=== PATIENT | male | born 1960 | race Hispanic/Latino ===

== ENCOUNTER 2022-07-29 03:52 | Emergency (ER) | payer OTHER ==
--- OUTSIDE RECORDS SUMMARY | 2022-07-29 03:58 | XMS REPORT | Continuity of Care Document ---
:1960 Author Organization [facility] t Address [address] [place] [address] [address] [place] [address] Care Team Providers Name Role Phone Glen Saravia MD Primary Care Physician JOSH LU Attending Clinician Unavailable Josh Lu Attending Clinician Yuval Vasquez Attending Clinician YUVAL VASQUEZ Attending Clinician Unavailable Kendy Fernández Attending Clinician Rehana Lackey Attending Clinician Problems Condition Condition Condition Status Onset Resolution Last Treating Co mments Source Name Details Category Date Date Treatment Clinician Date FATIGUE/FE FATIGUE/F Diagnosis Active 2020-032021-02-22 Memoria FRANCA/ABD EVER/ABD 04-19 09:10:00 l PAIN/HIGH PAIN/HIGH 00:00: Herm michael BP BP Active 00 02/16/2021 [facility] [place] ANXIETY ANXIETY Diagnosis Active 2019-032020-02-24 Memoria Active 2- 02:19:00 l 02/24/2020 00:00: Christoph Beaulieu 00 [place] SIDE PAIN SIDE PAIN Diagnosis Active 2019-032020-02-04 Memoria Active 04-05 15:23:00 l 02/04/2020 00:00: Christoph [facility] 00 [place] ABD PAIN/ ABD PAIN/ Diagnosis Active 2015-07-25 Memoria FEVER FEVER - 00:47:00 l Active 00:00: [place] 07/24/2015 00 [facility] [place] Hypertensi Problem Active 2021-02-21 Tiburcio paulson ve Hypertensi 09:23:43 l disorder, ve [place] systemic disorder, arterial systemic (disorder) arterial (disorder) Active Problem 02/21/2021 [facility] History of Past Illness Condition Condition Condition Status Onset Resolution Last Treating Co mments Source Name Details Category Date Date Treatment Clinician Date Fever, Fever, Problem 2020-032021-02-21 2021-02-21 Memoria unspecifie unspecifie 04-20 09:23:43 09:23:43 l d d 04:57: [place] 02/17/2021 00 02/21/2021 [facility] Essential Essential Problem 2020-032021-02-21 2021-02-21 Memoria (primary) (primary) 04-20 09:23:43 09:23:43 l hypertensi hypertensi 04:57: He harsha on on 00 02/17/2021 02/21/2021 [facility] Hematuria, Hematuria Problem 2020-032021-02-21 2021-02-21 Memoria unspecifie , 04-20 09:23:43 09:23:43 l d unspecifie 04:57: Christoph n d 00 02/17/2021 [facility] Anxiety Anxiety Problem 2019-032020-02-26 2020-02-26 Memoria disorder, disorder, 04-26 22:07:05 22:07:05 l unspecifie unspecifie 18:00: He rmann d d 00 02/24/2020 0 [facility] Unspecifie Unspecifi Problem 2019-032020-02-06 2020-02-06 Memoria d ed 04-05 23:14:11 23:14:11 l abdominal abdominal 18:00: Herm michael pain pain 00 02/04/2020 0 [facility] Discharge Discharge Problem 2015-07-28 2015-07-28 Memoria Diagnosis: Diagnosis: 07-24 00:21:12 00:21:12 l Generalize Generalize 05:00: He rmann d d 00 abdominal abdominal cramps cramps 07/25/2015 07/28/2015 [facility] Discharge Discharge Problem 2016-0 2015-07-28 2015-07-28 Memoria Diagnosis: Diagnosis: -15 00:21:12 00:21:12 l Viral Viral 05:00: [place] syndrome syndrome 00 07/25/2015 07/28/2015 [facility] Allergies, Adverse Reactions, Alerts Allergy Allergy Status Severity Reaction(s) Onset Inactive Treating Comm ents Source Name Type Date Date Clinician No Known No Known Active Memori a Medicati Medicati l on on [place] Allergie Allergie s s Social History Social Habit Start Date Stop Date Quantity Comments Source Sexual orientation [facility] Gender identity [facility] History of Social 2018-10-31 2018-10-[address] function 00:00:00 00:00:00 Hospital Tobacco use and 2018-01-31 2018-01-31 Smokeless [facility] exposure 00:00:00 00:00:00 tobacco non-user Hospital Alcohol intake 2018-01-31 2018-01-31 Current [facility] 00:00:00 00:00:00 non-drinker of Hospital alcohol (finding) Sex Assigned At [birth year] [facility] 00:00:00 00:00:00 Hospital Smoking Status Start Date Stop Date Source Social History [facility] Medications Ordered Filled Start Stop Current Ordering Indication Dosage Frequency Signature Comments Components Source Medication Medication Date Date Medication? Clinician (SIG) Name Name Acetaminoph 2020-03 No 1 tab, Adan livan en 325 MG / 04-20 Route: PO, l Hydrocodone 05:19: Drug Form: [place] Bitartrate 00 TAB, 5 MG Oral Dosing Tablet Weight 79.545, kg, ONCE, STAT, Start date: 02/16/21 23:19:00 SEAM STAYER, Stop date: 02/16/21 23:19:00 SEAM STAYER Ibuprofen 2020-03 No 600 mg, Memor ia 04-20 Route: PO, l 05:19: ONCE, [place] 00 Dosing Weight 79.545, kg, Priority: STAT, Start date: 02/16/21 23:19:00 SEAM STAYER, Stop date: 02/16/21 23:19:00 SEAM STAYER Saline 2020-03 No Notes: Memoria Flush 0.9% 04-20 Same as: l 02:58: BD [place] Posiflush Sterile Sodium 2020-03 No 2,343 mL, Memori a Chloride 04-20.5 l 0.9% 02:58: ml/hr, [place] (Bolus) IV 00 Infuse Over: 1.2 hr, Route: IV, 2,343, Drug form: INJ, ONCE, Priority: STAT, Dosing Weight 78.1 kg, Start date: 02/16/21 20:58:00 SEAM STAYER, Stop date: 02/16/21 20:58:00 SEAM STAYER, 0 Acetaminoph 2020-03 No Notes: Do M emoria en 04-20 not exceed l 02:57: 4 gm/day. (Same as: Tylenol) Ativan 2019-03 No 1 mg, Memoria 2- Route: PO, l 09:29: Drug form: [place] 00 TAB, ONCE, Dosing Weight 78.1, kg, Priority: STAT, Start date: 02/24/20 3:29:00 SEAM STAYER, Stop date: 02/24/20 3:29:00 SEAM STAYER clonazePAM 2019-03 Yes 0.5 mg = 1 M emoria 0.5 mg oral 2-15 tab, PO, l tablet 09:06: Bedtime, [place] 00 PRN Anxiety, # 10 tab, 0 Refill(s) Ketorolac 2019-03 Yes 10 mg = 1 Mem oria Tromethamin 1-25 tab, PO, l e 10 MG 21:33: Q6H, X 5 Christoph n Oral Tablet 00 day, # 20 tab, 0 Refill(s) SUMAtriptan 2017-03 Yes 50mg Take 50 mg Methodi (IMITREX) -[address] 50 MG 10:27: once [facility] tablet 12 needed for l migraine. May repeat in 2 hours if unresolved . Do not exceed 200 mg in 24 hours. Ondansetron Yes 4 mg = 1 Me moria 4 MG 5-15 tab, PO, l Disintegrat 05:25: BID, PRN He rmann ing Tablet 00 Nausea and [Zofran] Vomiting, Dissolve tab under tongue, X 5 day, # 10 tab, 0 Refill(s) Dicyclomine Yes 20 mg = 1 M emoria Hydrochlori 5-15 tab, PO, l de 20 MG 05:24: BID, PRN [place] nn Oral Tablet 00 Cramps, # [Bentyl] 14 tab, 0 Refill(s) Metronidazo Yes 500 mg = 1 Memoria le 500 MG 5-15 tab, PO, l Oral Tablet 05:23: Q12H, X 5 H ermann [Flagyl] 00 day, # 10 tab, 0 Refill(s) Ciprofloxac Yes 500 mg = 1 Memoria in 500 MG 5-15 tab, PO, l Oral Tablet 05:23: Q12H, X 7 H ermann [Cipro] day, # 14 tab, 0 Refill(s) ketOROLAC No 4 days Memor ia 30 mg/mL 5-15 l injectable 04:32: MEDICATION H ermann solution 00 WASTE Product Size: 30 mg Product Wasted: ___ mg Reglan No Notes: Memoria 5-15 (Same as: l 04:32: Reglan) [place] 00 Sodium No 1,000 mL, Memori a Chloride -15 1,000 l 0.154 04:32: ml/hr, [place] MEQ/ML 00 Infuse Injectable Over: 1 Solution hr, Route: IV, 1,000, Drug form: INJ, ONCE, Priority: STAT, Dosing Weight 75 kg, Start date: 07/24/15 23:32:00 CDT, Duration: 1 doses or times, Stop date: 07/24/15 23:32:00 CDT Tylenol No Notes: Do Memor ia 5-15 not exceed l 04:06: 4 gm/day. [place] 00 (Same as: Tylenol) Vital Signs Vital Name Observation Time Observation Value Comments Source Systolic (mm Hg) 2021-02-17 05:13:00 Adan rial [place] Diastolic (mm Hg) 2021-02-17 05:13:00 Mem orial [place] Temperature Oral (F) 2021-02-17 05:13:00 99.0 F [facility] [place] Respitory Rate 2021-02-17 05:13:00 Memori al [place] Respitory Rate 2021-02-17 04:35:00 Memori al [place] Systolic (mm Hg) 2021-02-17 03:55:00 Adan rial [place] Diastolic (mm Hg) 2021-02-17 03:55:00 Mem orial [place] Respitory Rate 2021-02-17 03:55:00 Memori al [place] Height 2021-02-17 03:39:00 167.64 cm [facility] [place] BMI Calculated 2021-02-17 03:39:00 Memori al [place] Weight 2021-02-17 03:39:00 [facility] [place] Systolic (mm Hg) 2021-02-17 02:52:00 Adan rial [place] Diastolic (mm Hg) 2021-02-17 02:52:00 Mem orial [place] Heart Rate 2021-02-17 02:52:00 [facility] [place] Temperature Oral (F) 2021-02-17 02:52:00 100.4 F [facility] [place] Systolic (mm Hg) 2020-02-24 09:38:00 Adan rial [place] Diastolic (mm Hg) 2020-02-24 09:38:00 Mem orial [place] Respitory Rate 2020-02-24 09:38:00 Memori al [place] Heart Rate 2020-02-24 09:38:00 [facility] [place] Temperature Oral (F) 2020-02-24 09:38:00 98 F [facility] [place] Height 2020-02-24 07:00:00 167.64 cm [facility] [place] BMI Calculated 2020-02-24 07:00:00 Memori al [place] Weight 2020-02-24 07:00:00 [facility] [place] Systolic (mm Hg) 2020-02-24 07:00:00 Adan rial [place] Diastolic (mm Hg) 2020-02-24 07:00:00 Mem orial [place] Heart Rate 2020-02-24 07:00:00 [facility] [place] Respitory Rate 2020-02-24 07:00:00 Memori al [place] Temperature Oral (F) 2020-02-24 07:00:00 98.0 F [facility] [place] Systolic (mm Hg) 2020-02-04 22:45:00 Adan rial [place] Diastolic (mm Hg) 2020-02-04 22:45:00 Mem orial [place] Respitory Rate 2020-02-04 22:45:00 Memori al [place] Height 2020-02-04 19:33:00 167.64 cm [facility] [place] BMI Calculated 2020-02-04 19:33:00 Memori al [place] Weight 2020-02-04 19:33:00 [facility] [place] Systolic (mm Hg) 2020-02-04 19:33:00 Adan rial [place] Diastolic (mm Hg) 2020-02-04 19:33:00 Mem orial [place] Heart Rate 2020-02-04 19:33:00 [facility] [place] Respitory Rate 2020-02-04 19:33:00 Memori al [place] Temperature Oral (F) 2020-02-04 19:33:00 98.3 F [facility] [place] Systolic (mm Hg) 2015-07-25 05:29:00 Adan rial [place] Diastolic (mm Hg) 2015-07-25 05:29:00 Mem orial [place] Respitory Rate 2015-07-25 05:29:00 Memori al [place] Heart Rate 2015-07-25 05:29:00 [facility] [place] Temperature Oral (F) 2015-07-25 05:29:00 98.6 F [facility] [place] Systolic (mm Hg) 2015-07-25 03:13:00 Adan rial [place] Diastolic (mm Hg) 2015-07-25 03:13:00 Mem orial [place] BMI Calculated 2015-07-25 03:13:00 Memori al [place] Weight 2015-07-25 03:13:00 [facility] [place] Heart Rate 2015-07-25 03:13:00 [facility] [place] Respitory Rate 2015-07-25 03:13:00 Memori al [place] Temperature Oral (F) 2015-07-25 03:13:00 100.6 F [facility] [place] Height 2015-07-25 03:13:00 167.64 cm [facility] [place] Procedures Procedure Date / Time Performed Performing Clinician [facility] e Colonoscopy 2020-02-23 06:00:00 [facility] Plan of Care Planned Activity Planned Date Details Comments Source Future Scheduled 2022-06-11 COVID-19 VACCINE (#1) [facility] Test 02:33:58 [code = COVID-19 VACCINE (#1)] Future Scheduled 2022-06-11 COLONOSCOPY SCREENING [facility] Test 02:33:58 [code = COLONOSCOPY SCREENING] Future Scheduled 2022-06-11 SHINGLES [facility]IN[facility] 02:33:58 of 2) [code = SHINGLES VACCINES (1 of 2)] Future Scheduled 2022-06-11 INFLUENZA VACCINE [facility] Test 02:33:58 [code = INFLUENZA VACCINE] Encounters Start End Encounter Admission Attending Care Care Encounter Source Date/Time Date/Time Type Type Clinicians Facility Department ID 2021-02-17 2021-02-17 Emergency nullFlavo [facility] [id number] Memoria 02:47:00 05:26:00 r [place] 03 l [facility] 2021-02-16 2021-02-16 Emergency E NAN, BL [facility]BL [id number] [facility]BL 20:47:00 23:26:00 JOSH 2021-02-16 2021-02-16 Outpatient DAVID LuPL [facility] [id number] 20:47:00 23:26:00 Josh Marisol Marcos 2021-02-16 2021-02-16 Outpatient DAVID LuPL [facility] [id number] 20:47:00 23:26:00 Josh Marisol Marcos 2020-02-24 2020-02-24 Emergency nullFlavo [facility] [id number] Memoria 06:51:52 09:40:00 r [place] 02 l [facility] 2020-02-24 2020-02-24 Outpatient DAVID VasquezPL [facility] [id number] 00:51:52 03:40:00 Abdiwsheila 02 [facility] 2020-02-24 2020-02-24 Emergency E PARISH VASQUEZ [facility]BL [id number] MHBL 00:51:00 03:40:00 ABDIWAHAB 2020-02-04 2020-02-04 Emergency nullFlavo [facility] [id number] Memoria 19:29:37 23:04:00 r [place] 01 [facility] 2020-02-04 2020-02-04 Outpatient Christina, PL [facility]PL [id number] 13:29:37 17:04:00 Abdiwahab 01 [facility] 2019-10-30 2019-10-31 Outpt Diag nullFlavo [facility] [id number] Memoria 20:08:00 04:59:00 Services r Outpatient 00 l [facility] 2019-10-30 2019-10-30 Outpatient PAULA Fernández MHOIP [id number] 15:08:00 23:59:00 Kendy 00 [place] 2015-07-25 2015-07-25 EC heenaFlavo [facility] [id number] Memoria 03:09:00 05:51:00 Emergency r [place] 00 l Center [facility] 2015-07-24 2015-07-25 Outpatient Fadkriss, MHPL [facility] [id number] 22:09:00 00:51:00 Rehana 00 [facility] Results Test Description Test Time Test Comments Results Result Comments Source URINE AND STOOL 2021-02-17 03:45:00 Test Item Value Reference Range Interpretation Comme nts UA Color (test code = UA Color) Yellow *NA*(02/16/21 9:45 PM) [facility] AND [id number] 03:45:00 Test Item Value Reference Range Interpretation Comments UA Turbidity (test code = Clear (02/16/21 9:45 UA Turbidity) PM) [facility] AND [id number] 03:45:00 Test Item Value Reference Range Interpretation Comments UA Spec Grav (test code = UA Spec 1.021 1 Grav) [facility] AND [id number] 03:45:00 Test Item Value Reference Range Interpretation Comments UA pH (test code = UA pH) 5.0 1 5.0-8.0 [facility] AND [id number] 03:45:00 Test Item Value Reference Range Interpretation Comments UA Protein (test code = UA Negative mg/dL Protein) [facility] AND [id number] 03:45:00 Test Item Value Reference Range Interpretation Comments UA Glucose (test code = UA Negative mg/dL Glucose) [facility] AND [id number] 03:45:00 Test Item Value Reference Range Interpretation Comments UA Ketones (test code = UA Negative mg/dL Ketones) [facility] AND [id number] 03:45:00 Test Item Value Reference Range Interpretation Comments UA Bili (test code = Negative *NA*(02/16/21 UA Bili) 9:45 PM) [facility] AND [id number] 03:45:00 Test Item Value Reference Range Interpretation Comments UA Blood (test code = Moderate *ABN*(02/16/21 UA Blood) 9:45 PM) [facility] AND [id number] 03:45:00 Test Item Value Reference Range Interpretation Comments UA Nitrite (test code Negative (02/16/21 9:45 = UA Nitrite) PM) [facility] AND [id number] 03:45:00 Test Item Value Reference Range Interpretation Comments UA Leuk Est (test Negative (02/16/21 9:45 code = UA Leuk Est) PM) [facility] AND [id number] 03:45:00 Test Item Value Reference Range Interpretation Comments UA Sq Epi (test code = UA Sq Occasional /LPF Epi) [facility] AND [id number] 03:45:00 Test Item Value Reference Range Interpretation Comments UA WBC (test code = 1 See_Comment [Automa moira message] The UA WBC) system which ge nerated this result transmit moira reference range : <=5. The reference range was not used to interpr et this result as rodney l/abnormal. [facility] AND [id number] 03:45:00 Test Item Value Reference Range Interpretation Comments UA RBC (test code = 8 See_Comment [Automa moira message] The UA RBC) system which ge nerated this result transmit moira reference range : <=2. The reference range was not used to interpr et this result as rodney l/abnormal. [facility] AND [id number] 03:45:00 Test Item Value Reference Range Interpretation Comments UA Mucus (test code = UA Mucus) Few /LPF [facility] AND [id number] 03:45:00 Test Item Value Reference Range Interpretation Comments UA Urobilinogen (test code = UA <=1.0 mg/dL 0.1-1.0 Urobilinogen) [id number] 03:32:00 Test Item Value Reference Range Interpretation Comments Coronavirus (COVID-19) Not Detected (02/16/21 GREG (test code = 9:32 PM) Coronavirus (COVID-19) GREG) [id number] 03:31:00 Test Item Value Reference Range Interpretation Comments Plt Morph (test code = Normal (02/16/21 9:31 Plt Morph) PM) [id number] 03:31:00 Test Item Value Reference Range Interpretation Comments Segs (test code = Segs) 92.9 45.0-75.0 [facility] [id number] 03:31:00 Test Item Value Reference Range Interpretation Comments Lymphocytes (test code = Lymphocytes) 3.0 20.0-40.0 [facility] [id number] 03:31:00 Test Item Value Reference Range Interpretation Comments Monocytes (test code = Monocytes) 3.7 2.0-12.0 [facility] [id number] 03:31:00 Test Item Value Reference Range Interpretation Comments Eosinophils (test code = 0.2 See_Comment [A utomated message] The Eosinophils) system which ge nerated this result tra nsmitted reference range : <=4.0. The reference r reva was not used to int erpret this result as normal/abnormal . [facility] [id number] 03:31:00 Test Item Value Reference Range Interpretation Comments Basophils (test code = 0.2 See_Comment [Aut omated message] The Basophils) system which ge nerated this result tra nsmitted reference range : <=1.0. The reference r reva was not used to int erpret this result as normal/abnormal . [facility] [id number] 03:31:00 Test Item Value Reference Range Interpretation Comments Neutrophils # (test code = Neutrophils 10.4 1.5-8.1 #) [facility] [id number] 03:31:00 Test Item Value Reference Range Interpretation Comments Lymphocytes # (test code = Lymphocytes 0.3 1.0-5.5 #) [facility] [id number] 03:31:00 Test Item Value Reference Range Interpretation Comments Monocytes # (test code 0.4 See_Comment [Aut omated message] The = Monocytes #) system which generated this result tra nsmitted reference range : <=0.8. The reference r reva was not used to int erpret this result as normal/abnormal . [facility]Act[facility] [id number] 03:31:00 Test Item Value Reference Range Interpretation Comments Total CK (test code = Total CK) 72 12-191 [facility] [id number] 03:31:00 Test Item Value Reference Range Interpretation Comments Troponin-I (test code no gt See_Comment [Auto mated message] The = Troponin-I) system which g enerated this result transmit moira reference range : <=0.40. The reference r reva was not used to interpr et this result as rodney l/abnormal. [facility] [id number] 03:31:00 Test Item Value Reference Range Interpretation Comments Procalcitonin Lvl (test 0.16 See_Comment [Au tomated message] code = Procalcitonin Lvl) Th e system which generated this result transmitted ref erence range: <=0.10. The reference range was not used to interpr et this result as normal/abnormal . [facility] [id number] 03:31:00 Test Item Value Reference Range Interpretation Comments Glucose Lvl (test code = Glucose Lvl) 113 70-99 [facility] [id number] 03:31:00 Test Item Value Reference Range Interpretation Comments BUN (test code = BUN) 14 7-22 [facility] [id number] 03:31:00 Test Item Value Reference Range Interpretation Comments Creatinine Lvl (test code = Creatinine 1.12 0.50-1.40 Lvl) [facility] [id number] 03:31:00 Test Item Value Reference Range Interpretation Comments Sodium Lvl (test code = Sodium Lvl) 135 135-145 [facility] [id number] 03:31:00 Test Item Value Reference Range Interpretation Comments Potassium Lvl (test code = Potassium 3.7 3.5-5.1 Lvl) [facility] [id number] 03:31:00 Test Item Value Reference Range Interpretation Comments Chloride Lvl (test code = Chloride Lvl) 105 95-109 [facility] [id number] 03:31:00 Test Item Value Reference Range Interpretation Comments CO2 (test code = CO2) 23 24-32 [facility] [id number] 03:31:00 Test Item Value Reference Range Interpretation Comments Calcium Lvl (test code = Calcium Lvl) 8.6 8.5-10.5 [facility] [id number] 03:31:00 Test Item Value Reference Range Interpretation Comments Total Protein (test code = Total 7.9 6.4-8.4 Protein) [facility] [id number] 03:31:00 Test Item Value Reference Range Interpretation Comments Albumin Lvl (test code = Albumin Lvl) 3.9 3.5-5.0 [place] [id number] 03:31:00 Test Item Value Reference Range Interpretation Comments ALT (test code = ALT) 24 See_Comment [Auto mated message] The system which ge nerated this result transmit moira reference range : <=65. The reference range was not used to interpr et this result as rodney l/abnormal. [facility] [id number] 03:31:00 Test Item Value Reference Range Interpretation Comments AST (test code = AST) 14 See_Comment [Auto mated message] The system which ge nerated this result transmit moira reference range : <=37. The reference range was not used to interpr et this result as rodney l/abnormal. [place] [id number] 03:31:00 Test Item Value Reference Range Interpretation Comments Alk Phos (test code = Alk Phos) 80 39-136 [facility] [id number] 03:31:00 Test Item Value Reference Range Interpretation Comments Bili Total (test code = Bili Total) 0.4 0.2-1.3 [facility] [id number] 03:31:00 Test Item Value Reference Range Interpretation Comments AGAP (test code = AGAP) 10.7 10.0-20.0 [facility] [id number] 03:31:00 Test Item Value Reference Range Interpretation Comments B/C Ratio (test code = B/C Ratio) 12 1 6-25 [facility] [id number] 03:31:00 Test Item Value Reference Range Interpretation Comments Globulin (test code = Globulin) 4.0 2.7-4.2 [facility] [id number] 03:31:00 Test Item Value Reference Range Interpretation Comments A/G Ratio (test code = A/G Ratio) 1.0 1 0.7-1.6 [facility] [id number] 03:31:00 Test Item Value Reference Range Interpretation Comments eGFR (test code = eGFR) 71 [facility] [id number] 03:31:00 Test Item Value Reference Range Interpretation Comments Lactic Acid Lvl (test code = Lactic 1.8 0.5-2.2 Acid Lvl) [facility] [id number] 03:31:00 Test Item Value Reference Range Interpretation Comments WBC (test code = WBC) 11.2 3.7-10.4 [facility] [id number] 03:31:00 Test Item Value Reference Range Interpretation Comments RBC (test code = RBC) 4.59 4.70-6.10 [facility] H[id number] 03:31:00 Test Item Value Reference Range Interpretation Comments Hgb (test code = Hgb) 14.3 14.0-18.0 [facility] [id number] 03:31:00 Test Item Value Reference Range Interpretation Comments Hct (test code = Hct) 41.9 42.0-54.0 [facility] [id number] 03:31:00 Test Item Value Reference Range Interpretation Comments MCV (test code = MCV) 91.1 80.0-94.0 [facility] [id number] 03:31:00 Test Item Value Reference Range Interpretation Comments MCH (test code = MCH) 31.2 pg 27.0-31.0 [facility] [id number] 03:31:00 Test Item Value Reference Range Interpretation Comments MCHC (test code = MCHC) 34.2 32.0-36.0 [facility] [id number] 03:31:00 Test Item Value Reference Range Interpretation Comments RDW (test code = RDW) 12.8 11.5-14.5 [facility] H[id number] 03:31:00 Test Item Value Reference Range Interpretation Comments Platelet (test code = Platelet) 282 133-450 [facility] [facility]1108-80-59 03:31:00 Test Item Value Reference Range Interpretation Comments MPV (test code = MPV) 8.8 7.4-10.4 [facility]roniuaLVYGOBDFJQ5886-32-39 03:31:00 Test Item Value Reference Range Interpretation Comments PT (test code = PT) 13.4 s 12.0-14.7 [facility] HospitalKkgsquaXOXXFARHSG8520-06-75 03:31:00 Test Item Value Reference Range Interpretation Comments INR (test code = INR) 1.03 1 0.85-1.17 [place] 101781-12-09 03:31:00 Test Item Value Reference Range Interpretation Comments PTT (test code = PTT) 27.7 s 22.9-35.8 [facility]O9521[facility]43-52 03:31:00 Test Item Value Reference Range Interpretation Comments RBC Morph (test code = Normal (02/16/21 9:31 RBC Morph) PM) [facility] [id number] 08:08:00 Test Item Value Reference Range Interpretation Comments Troponin-I (test code no gt See_Comment [Auto mated message] The = Troponin-I) system which g enerated this result transmit moira reference range : <=0.40. The reference r reva was not used to interpr et this result as rodney l/abnormal. [facility] [id number] 20:57:00 Test Item Value Reference Range Interpretation Comments Glucose Lvl (test code = Glucose Lvl) 91 70-99 [facility] [id number] 20:57:00 Test Item Value Reference Range Interpretation Comments BUN (test code = BUN) 15 - [facility]2020-11-25 20:57:00 Test Item Value Reference Range Interpretation Comments Creatinine Lvl (test code = Creatinine 1.02 0.50-1.40 Lvl) [facility]2020-11-25 20:57:00 Test Item Value Reference Range Interpretation Comments Sodium Lvl (test code = Sodium Lvl) 137 135-145 [facility]2020-11-25 20:57:00 Test Item Value Reference Range Interpretation Comments Potassium Lvl (test code = Potassium 3.8 3.5-5.1 Lvl) [facility]2020-11-25 20:57:00 Test Item Value Reference Range Interpretation Comments Chloride Lvl (test code = Chloride Lvl) 106 95-109 [facility]2020-11-25 20:57:00 Test Item Value Reference Range Interpretation Comments CO2 (test code = CO2) -32 [facility]2020-11-25 20:57:00 Test Item Value Reference Range Interpretation Comments Calcium Lvl (test code = Calcium Lvl) 9.0 8.5-10.5 [facility] [id number] 20:57:00 Test Item Value Reference Range Interpretation Comments Total Protein (test code = Total 8.2 6.4-8.4 Protein) [facility] [employer] [id number] 20:57:00 Test Item Value Reference Range Interpretation Comments Albumin Lvl (test code = Albumin Lvl) 3.8 3.5-5.0 [facility] [employer] [id number] 20:57:00 Test Item Value Reference Range Interpretation Comments ALT (test code = ALT) 34 See_Comment [Auto mated message] The system which ge nerated this result transmit moira reference range : <=65. The reference range was not used to interpr et this result as rodney l/abnormal. [facility] [employer] [id number] 20:57:00 Test Item Value Reference Range Interpretation Comments AST (test code = AST) 18 See_Comment [Auto mated message] The system which ge nerated this result transmit moira reference range : <=37. The reference range was not used to interpr et this result as rodney l/abnormal. [facility] [employer] [id number] 20:57:00 Test Item Value Reference Range Interpretation Comments Alk Phos (test code = Alk Phos) 84 39-136 [facility] [employer] [id number] 20:57:00 Test Item Value Reference Range Interpretation Comments Bili Total (test code = Bili Total) 0.6 0.2-1.3 [facility] [employer] [id number] 20:57:00 Test Item Value Reference Range Interpretation Comments AGAP (test code = AGAP) 8.8 10.0-20.0 [facility] [employer] [id number] 20:57:00 Test Item Value Reference Range Interpretation Comments B/C Ratio (test code = B/C Ratio) 15 1 6-25 [facility] [employer] [id number] 20:57:00 Test Item Value Reference Range Interpretation Comments Globulin (test code = Globulin) 4.4 2.7-4.2 [facility] [employer] [id number] 20:57:00 Test Item Value Reference Range Interpretation Comments A/G Ratio (test code = A/G Ratio) 0.9 1 0.7-1.6 [facility] [employer] [id number] 20:57:00 Test Item Value Reference Range Interpretation Comments eGFR (test code = eGFR) 80 [facility] HospitalRlngpsqOYMSKHLQXR5262-91-86 20:57:00 Test Item Value Reference Range Interpretation Comments WBC (test code = WBC) 7.8 3.7-10.4 [facility] HospitalJgpkianPGBFLTVGER3751-26-39 20:57:00 Test Item Value Reference Range Interpretation Comments RBC (test code = RBC) 4.57 4.70-6.10 [facility] HospitalUiqjdhaUOLZWDOZEQ5241-91-56 20:57:00 Test Item Value Reference Range Interpretation Comments Hgb (test code = Hgb) 14.6 14.0-18.0 [place] [address]-11-25 20:57:00 Test Item Value Reference Range Interpretation Comments Hct (test code = Hct) 41.5 42.0-54.0 [facility] HospitalVthlzftKBWVYSCSSM1811-51-74 20:57:00 Test Item Value Reference Range Interpretation Comments MCV (test code = MCV) 91.0 80.0-94.0 [place] 101780-11-25 20:57:00 Test Item Value Reference Range Interpretation Comments MCH (test code = MCH) 31.9 pg 27.0-31.0 [place] 101780-11-25 20:57:00 Test Item Value Reference Range Interpretation Comments MCHC (test code = MCHC) 35.1 32.0-36.0 [facility] HospitalBmnkwqwCXLCSULVVW6035-99-21 20:57:00 Test Item Value Reference Range Interpretation Comments RDW (test code = RDW) 13.3 11.5-14.5 [facility] HospitalVezixjnRRZYEELPKE3952-65-01 20:57:00 Test Item Value Reference Range Interpretation Comments Platelet (test code = Platelet) 290 133-450 [facility] HospitalCdtpwzpVABFBKISUD6142-94-33 20:57:00 Test Item Value Reference Range Interpretation Comments MPV (test code = MPV) 8.6 7.4-10.4 [place] 101780-11-25 20:57:00 Test Item Value Reference Range Interpretation Comments Segs (test code = Segs) 69.6 45.0-75.0 [place] 101780-11-25 20:57:00 Test Item Value Reference Range Interpretation Comments Lymphocytes (test code = Lymphocytes) 21.0 20.0-40.0 [place] 101780-11-25 20:57:00 Test Item Value Reference Range Interpretation Comments Monocytes (test code = Monocytes) 7.9 2.0-12.0 [place] [address]-11-25 20:57:00 Test Item Value Reference Range Interpretation Comments Eosinophils (test code = 0.8 See_Comment [A utomated message] The Eosinophils) system which ge nerated this result tra nsmitted reference range : <=4.0. The reference r reva was not used to int erpret this result as normal/abnormal . [place] [address]-11-25 20:57:00 Test Item Value Reference Range Interpretation Comments Basophils (test code = 0.7 See_Comment [Aut omated message] The Basophils) system which ge nerated this result tra nsmitted reference range : <=1.0. The reference r reva was not used to int erpret this result as normal/abnormal . [place] [address]-11-25 20:57:00 Test Item Value Reference Range Interpretation Comments Neutrophils # (test code = Neutrophils 5.4 1.5-8.1 #) [place] [address]-11-25 20:57:00 Test Item Value Reference Range Interpretation Comments Lymphocytes # (test code = Lymphocytes 1.6 1.0-5.5 #) [place] [address]-11-25 20:57:00 Test Item Value Reference Range Interpretation Comments Monocytes # (test code 0.6 See_Comment [Aut omated message] The = Monocytes #) system which generated this result tra nsmitted reference range : <=0.8. The reference r reva was not used to int erpret this result as normal/abnormal . [place] [address]-11-25 20:57:00 Test Item Value Reference Range Interpretation Comments Eosinophils # (test code 0.1 See_Comment [A utomated message] The = Eosinophils #) system whic h generated this result tra nsmitted reference range : <=0.5. The reference r reva was not used to int erpret this result as normal/abnormal . [place] [address]-11-25 20:57:00 Test Item Value Reference Range Interpretation Comments Basophils # (test code 0.1 See_Comment [Aut omated message] The = Basophils #) system which generated this result tra nsmitted reference range : <=0.2. The reference r reva was not used to int erpret this result as normal/abnormal . [facility] [id number] 20:57:00 Test Item Value Reference Range Interpretation Comments UA Color (test code = Yellow *NA*(02/04/20 UA Color) 2:57 PM) [facility] [id number] 20:57:00 Test Item Value Reference Range Interpretation Comments UA Turbidity (test code = Clear (02/04/20 2:57 UA Turbidity) PM) [facility] [id number] 20:57:00 Test Item Value Reference Range Interpretation Comments UA Spec Grav (test code = UA Spec 1.011 1 Grav) [facility] [id number] 20:57:00 Test Item Value Reference Range Interpretation Comments UA pH (test code = UA pH) 6.0 1 5.0-8.0 [facility] [id number] 20:57:00 Test Item Value Reference Range Interpretation Comments UA Protein (test code = UA Negative mg/dL Protein) [facility] [id number] 20:57:00 Test Item Value Reference Range Interpretation Comments UA Glucose (test code = UA Negative mg/dL Glucose) [facility] [id number] 20:57:00 Test Item Value Reference Range Interpretation Comments UA Ketones (test code = UA Negative mg/dL Ketones) [facility] [id number] 20:57:00 Test Item Value Reference Range Interpretation Comments UA Bili (test code = Negative *NA*(02/04/20 UA Bili) 2:57 PM) [facility] [id number] 20:57:00 Test Item Value Reference Range Interpretation Comments UA Blood (test code = Small *ABN*(02/04/20 UA Blood) 2:57 PM) [facility] [id number] 20:57:00 Test Item Value Reference Range Interpretation Comments UA Nitrite (test code Negative (02/04/20 2:57 = UA Nitrite) PM) [facility] [id number] 20:57:00 Test Item Value Reference Range Interpretation Comments UA Leuk Est (test Negative (02/04/20 2:57 code = UA Leuk Est) PM) [facility] [id number] 20:57:00 Test Item Value Reference Range Interpretation Comments UA WBC (test code = 1 See_Comment [Automa moira message] The UA WBC) system which ge nerated this result transmit moira reference range : <=5. The reference range was not used to interpr et this result as rodney l/abnormal. [facility] [id number] 20:57:00 Test Item Value Reference Range Interpretation Comments UA RBC (test code = no gt See_Comment [Automa moira message] The UA RBC) system which ge nerated this result transmit moira reference range : <=2. The reference range was not used to interpr et this result as rodney l/abnormal. [facility] [id number] 20:57:00 Test Item Value Reference Range Interpretation Comments UA Mucus (test code = UA Mucus) Few /LPF [facility] [id number] 20:57:00 Test Item Value Reference Range Interpretation Comments UA Sq Epi (test code = UA Sq Epi) None [facility]en [facility] [id number] 20:57:00 Test Item Value Reference Range Interpretation Comments UA Urobilinogen (test code = UA <=1.0 mg/dL 0.1-1.0 Urobilinogen) [facility] [employer] [id number] 04:35:00 Test Item Value Reference Range Interpretation Comments eGFR (test code = eGFR) 65 [facility] [id number] 04:35:00 Test Item Value Reference Range Interpretation Comments ASPARTATE TRANSAMINASE 28 See_Comment [Aut omated message] (test code = ASPARTATE The s ystem which TRANSAMINASE) generated this result transmitted ref erence range: <=37. Th e reference range was not used to interpr et this result as normal/abnormal . [facility] [employer] [id number] 04:35:00 Test Item Value Reference Range Interpretation Comments Total Protein (test code = Total 7.6 6.4-8.4 Protein) [facility] [id number] 04:35:00 Test Item Value Reference Range Interpretation Comments Creatinine Lvl (test code = Creatinine 1.25 0.50-1.40 Lvl) [facility] [id number] 04:35:00 Test Item Value Reference Range Interpretation Comments BUN (test code = BUN) 17 7-22 [facility]2016-05-15 04:35:00 Test Item Value Reference Range Interpretation Comments Bili Total (test code = Bili Total) 0.4 0.2-1.3 [facility]2016-05-15 04:35:00 Test Item Value Reference Range Interpretation Comments Calcium Lvl (test code = Calcium Lvl) 8.2 8.5-10.5 [facility]2016-05-15 04:35:00 Test Item Value Reference Range Interpretation Comments CO2 (test code = CO2) 24 24-32 [facility]2016-05-15 04:35:00 Test Item Value Reference Range Interpretation Comments Chloride Lvl (test code = Chloride Lvl) 106 95-109 [facility]2016-05-15 04:35:00 Test Item Value Reference Range Interpretation Comments Potassium Lvl (test code = Potassium 3.6 3.5-5.1 Lvl) [facility]2016-05-15 04:35:00 Test Item Value Reference Range Interpretation Comments Sodium Lvl (test code = Sodium Lvl) 139 135-145 [facility]2016-05-15 04:35:00 Test Item Value Reference Range Interpretation Comments ALANINE AMINOTRANSFERASE 46 See_Comment [A utomated message] (test code = ALANINE The sys tem which AMINOTRANSFERASE) generated this result transmitted ref erence range: <=65. Th e reference range was not used to int erpret this result as normal/abnormal . [facility]2016-05-15 04:35:00 Test Item Value Reference Range Interpretation Comments Alk Phos (test code = Alk Phos) 98 39-136 [place] 829966-05-15 04:35:00 Test Item Value Reference Range Interpretation Comments Albumin Lvl (test code = Albumin Lvl) 3.7 3.5-5.0 [facility]2016-05-15 04:35:00 Test Item Value Reference Range Interpretation Comments Glucose Lvl (test code = Glucose Lvl) 107 70-99 [facility]2016-05-15 04:35:00 Test Item Value Reference Range Interpretation Comments B/C Ratio (test code = B/C Ratio) 14 6-25 [place] 829966-05-15 04:35:00 Test Item Value Reference Range Interpretation Comments AGAP (test code = AGAP) 12.6 10.0-20.0 [facility]2016-05-15 04:35:00 Test Item Value Reference Range Interpretation Comments A/G Ratio (test code = A/G Ratio) 0.9 0.7-1.6 [facility]2016-05-15 04:35:00 Test Item Value Reference Range Interpretation Comments Globulin (test code = Globulin) 3.9 2.0-4.0 [facility] Ho[id number] 04:35:00 Test Item Value Reference Range Interpretation Comments Basophils # (test code 0.1 See_Comment [Aut omated message] The = Basophils #) system which generated this result tra nsmitted reference range : <=0.2. The reference r reva was not used to int erpret this result as normal/abnormal . [facility] HospitalJrpakbtQLNWEAIFUW7918-25-46 04:35:00 Test Item Value Reference Range Interpretation Comments Lymphocytes # (test code = Lymphocytes 1.2 1.0-5.5 #) [facility] HospitalPktzajhGVLQECAFIZ9582-99-22 04:35:00 Test Item Value Reference Range Interpretation Comments Monocytes # (test code 0.8 See_Comment [Aut omated message] The = Monocytes #) system which generated this result tra nsmitted reference range : <=0.8. The reference r reva was not used to int erpret this result as normal/abnormal . [facility] HospitalZpwwnptWLEOMXXMPE1999-25-97 04:35:00 Test Item Value Reference Range Interpretation Comments Segs-Bands # (test code = Segs-Bands #) 9.5 1.5-8.1 [facility] HospitalYytlgqpMVJGXCFXHX6732-20-20 04:35:00 Test Item Value Reference Range Interpretation Comments Eosinophils (test code = 0.2 See_Comment [A utomated message] The Eosinophils) system which ge nerated this result tra nsmitted reference range : <=4.0. The reference r reva was not used to int erpret this result as normal/abnormal . [facility] HospitalKfxlrusZTOMWFOCEE6636-01-84 04:35:00 Test Item Value Reference Range Interpretation Comments Lymphocytes (test code = Lymphocytes) 10.1 20.0-40.0 [facility] HospitalKnnqrndEYOMKWRIUN1017-91-97 04:35:00 Test Item Value Reference Range Interpretation Comments Monocytes (test code = Monocytes) 7.3 2.0-12.0 [facility] Ho[id number] 04:35:00 Test Item Value Reference Range Interpretation Comments Segs (test code = Segs) 81.8 45.0-75.0 [facility] HospitalGkfwgobZUFBGFGPLP7170-22-70 04:35:00 Test Item Value Reference Range Interpretation Comments Basophils (test code = 0.6 See_Comment [Aut omated message] The Basophils) system which ge nerated this result tra nsmitted reference range : <=1.0. The reference r reva was not used to int erpret this result as normal/abnormal . [facility] HospitalFohhfdpOWNWEASNWH8540-57-88 04:35:00 Test Item Value Reference Range Interpretation Comments MPV (test code = MPV) 8.4 7.4-10.4 [facility] HospitalVihydzySYKBPSPDGC0170-74-06 04:35:00 Test Item Value Reference Range Interpretation Comments MCHC (test code = MCHC) 34.0 32.0-36.0 [facility] HospitalCkylbxsBDTWSXXYNK2958-16-49 04:35:00 Test Item Value Reference Range Interpretation Comments Platelet (test code = Platelet) 279 133-450 [facility] HospitalNcbdmxaDRHVCBLCMA7306-01-25 04:35:00 Test Item Value Reference Range Interpretation Comments MCH (test code = MCH) 30.3 pg 27.0-31.0 [facility] HospitalZrfzyctILARVWVOEF4335-44-40 04:35:00 Test Item Value Reference Range Interpretation Comments RBC X 10x6 (test code = RBC X 10x6) 4.90 4.70-6.10 [facility] HospitalGzviyftNAHMTFGLRF2695-24-60 04:35:00 Test Item Value Reference Range Interpretation Comments Hgb (test code = Hgb) 14.9 14.0-18.0 [facility] HospitalZlyeazqXSPMTQAJMA2263-07-74 04:35:00 Test Item Value Reference Range Interpretation Comments WBC X 10x3 (test code = WBC X 10x3) 11.6 3.7-10.4 [facility] HospitalIqgnczdKNOQKMYOGE5012-35-34 04:35:00 Test Item Value Reference Range Interpretation Comments MCV (test code = MCV) 89.1 80.0-94.0 [facility] HospitalBqudolrWWJLBBOSSB1516-07-45 04:35:00 Test Item Value Reference Range Interpretation Comments Hct (test code = Hct) 43.7 42.0-54.0 [facility]bluqaeYFQVOWAERD6477-99-04 04:35:00 Test Item Value Reference Range Interpretation Comments RDW (test code = RDW) 13.1 11.5-14.5 [facility] - [id number] 04:13:00 Test Item Value Reference Range Interpretation Comments Influ B (test code = Negative (07/24/15 11:13 Influ B) PM) [facility] HospitalVIR[facility] [id number] 04:13:00 Test Item Value Reference Range Interpretation Comments Influ A (test code = Negative (07/24/15 11:13 Influ A) PM) [facility]
[2022-07-29] MEDS ORDERED: KETOROLAC 30 MG/ML INJ ONE (05:13)
--- NOTE | 2022-07-29 05:14 | ER ---
Nurse's Notes [facility] Name: Manoj Hutchins Age: 61 yrs Sex: Male : 1960 Arrival Date: 07/29/2022 Time: 03:52 Bed 6 Private MD: Diagnosis: Strain of muscle and tendon of head, initial encounter Presentation: 07/29 04:15 Coronavirus screen: Vaccine status: Patient reports receiving the 2nd dose of the covid kd3 vaccine. Ebola Screen: No symptoms or risks identified at this time. Initial Sepsis Screen: Does the patient meet any 2 criteria? No. Patient's initial sepsis screen is negative. Does the patient have a suspected source of infection? No. Patient's initial sepsis screen is negative. Risk Assessment: Do you want to hurt yourself or someone else? Patient reports no desire to harm self or others. Onset of symptoms was July 29, 2022. 04:15 Method Of Arrival: Ambulatory kd3 04:15 Chief complaint: Patient states: for a few days i have been having pain on the left kd3 side of my neck and im worried because it has gotten worse. Now it radiates up to my head. My left jaw also hurts. I did not injure it but i do a lot of physical work. 04:15 Acuity: BRAYDON 3 kd3 Triage Assessment: 04:17 General: Appears uncomfortable, Behavior is calm, cooperative. Pain: Complains of pain kd3 in left submandibular area and left sternocleidomastoid. Neuro: Level of Consciousness is awake, alert, obeys commands, Oriented to person, place, time, situation. Cardiovascular: Patient's skin is warm and dry. Respiratory: Airway is patent Trachea midline Respiratory effort is even, unlabored, Respiratory pattern is regular, symmetrical. Historical: - Allergies: 04:17 No Known Allergies; kd3 - Home Meds: 04:17 losartan oral [Active]; Sumatriptan Sub-Q for migraine [Active]; kd3 - PMHx: 04:19 Migraine; Hypertensive disorder; kd3 - Immunization history:: Adult Immunizations up to date. - Social history:: Smoking status: unknown. Screenin:39 [facility] ED Fall Risk Assessment (Adult) History of falling in the last 3 months, lg3 including since admission No falls in past 3 months (0 pts). Abuse screen: Denies threats or abuse. Denies injuries from another. Nutritional screening: No deficits noted. Tuberculosis screening: No symptoms or risk factors identified. Assessment: 04:39 General: Appears in no apparent distress. uncomfortable, Behavior is calm, cooperative. lg3 Pain: Complains of pain in left sternocleidomastoid Pain radiates to back of head. Neuro: No deficits noted. Maldonado Agitation-Sedation Scale (RASS): 0 - Alert and Calm Level of Consciousness is awake, alert, obeys commands, Oriented to person, place, time, situation. Cardiovascular: No deficits noted. Denies chest pain, shortness of breath, Capillary refill < 3 seconds Clubbing of nail beds is absent JVD is absent Patient's skin is warm and dry. Respiratory: No deficits noted. Airway is patent Trachea midline Respiratory effort is even, unlabored, Respiratory pattern is regular, symmetrical. GI: No deficits noted. No signs and/or symptoms were reported involving the gastrointestinal system. Abdomen is round non-distended. : No deficits noted. No signs and/or symptoms were reported regarding the genitourinary system. EENT: No deficits noted. No signs and/or symptoms were reported regarding the EENT system. Derm: No deficits noted. No signs and/or symptoms reported regarding the dermatologic system. Skin is intact, is healthy with good turgor, Skin is dry, Skin is normal, Skin temperature is warm. Musculoskeletal: Circulation, motion, and sensation intact. Range of motion: intact in all extremities, Reports pain in neck. 05:25 Reassessment: Patient appears in no apparent distress at this time. Patient and/or jb4 family updated on plan of care and expected duration. Pain level reassessed. Patient is alert, oriented x 3, equal unlabored respirations, skin warm/dry/pink. Patient states feeling better. Vital Signs: 04:15 BP 165 / 92; Pulse 68; Resp 19; Temp 98.5(O); Pulse Ox 99% on R/A; Weight 77.11 kg; kd3 Height 5 ft. 6 in. ; 04:15 Body Mass Index 27.44 (77.11 kg, 167.64 cm) kd3 ED Course: 03:55 Patient arrived in ED. ag3 04:12 George Hightower MD is Attending Physician. bs3 04:17 Triage completed. kd3 04:19 Arm band placed on right wrist. kd3 04:39 Lidia Galeano, RN is Primary Nurse. lg3 04:39 Patient has correct armband on for positive identification. Placed in gown. Bed in low lg3 position. Call light in reach. Side rails up X 1. Client placed on continuous cardiac and pulse oximetry monitoring. NIBP monitoring applied. Door closed. Noise minimized. Warm blanket given. 05:25 No provider procedures requiring assistance completed. Patient did not have IV access jb4 during this emergency room visit. Administered Medications: 05:10 Drug: Ketorolac IM 30 mg Route: IM; Site: left gluteus; jb4 05:25 Follow up: Response: No adverse reaction; Marked relief of symptoms jb4 Medication: 05:25 VIS not applicable for this client. jb4 Outcome: 05:13 Discharge ordered by . bs3 05:25 Discharged to home ambulatory. jb4 05:25 Condition: stable 05:25 Discharge instructions given to patient, Instructed on discharge instructions, follow up and referral plans. no drinking with medication, no driving heavy equipment, medication usage, Demonstrated understanding of instructions, follow-up care, medications, Prescriptions given X 3. 05:26 Patient left the ED. jb4 Signatures: Ephraim Mccullough, RN RN jb4 Theresa Valdes [facility] Lidia Galeano, RN RN 3 Alicia Marcum RN RN hunter3 George Hightower MD MD bs3
--- NOTE | 2022-07-29 05:14 | EDPHYS ---
Physician Documentation [facility] Name: Manoj Hutchins Age: 61 yrs Sex: Male : 1960 Arrival Date: 07/29/2022 Time: 03:52 Bed 6 Private MD: ED Physician George Hightower HPI: 07/29 05:08 This 61 yrs old Male presents to ER via Ambulatory with complaints of High bs3 Blood Pressure, NECK PAIN. 05:08 61-year-old male history of hypertension presents with left-sided neck pain he notes bs3 that he was doing a lot of work in his house last week and then developed neck pain it is worse with movement better with rest he feels like it is the muscle in his left anterior neck he denies any associated numbness tingling or weakness in his extremities she denies any chest pain shortness of breath he notes that it does radiate towards his ear denies any fevers chills dental pain difficulty breathing or swallowing he tried Tylenol with some relief. 05:08 He was concerned today because his blood pressure has been elevated this week with the bs3 symptoms and therefore he came in. Historical: - Allergies: 04:17 No Known Allergies; kd3 - Home Meds: 04:17 losartan oral [Active]; Sumatriptan Sub-Q for migraine [Active]; kd3 - PMHx: 04:19 Migraine; Hypertensive disorder; kd3 - Immunization history:: Adult Immunizations up to date. - Social history:: Smoking status: unknown. ROS: 05:08 Constitutional: Negative for fever, chills bs3 05:08 All other systems are negative. Exam: 05:08 Constitutional: This is a well developed, well nourished patient who is awake, alert, bs3 and in no acute distress. Head/Face: Normocephalic, atraumatic. Eyes: Pupils equal round and reactive to light, extra-ocular motions intact. Lids and lashes normal. ENT: mmm, no posterior phyarngeal erythema Neck: Trachea midline, no thyromegaly, no neck stiffness, he has significant tenderness over his left SCM it is tender at the insertion near the clavicle, all the way to the back of his ear. He has no bruit, the right scm is non tender Chest/axilla: Normal chest wall appearance and motion. Nontender with no deformity. No lesions are appreciated. Cardiovascular: Regular rate and rhythm with a normal S1 and S2. symmetric pulses in upper extremities MS/ Extremity: Pulses equal, no cyanosis. Neurovascular intact. Full, normal range of motion. Neuro: Awake and alert, GCS 15, oriented to person, place, time, and situation. Cranial nerves II-XII grossly intact. Motor strength 5/5 in all extremities. Sensory grossly intact. Psych: Awake, alert, with orientation to person, place and time. Behavior, mood, and affect are within normal limits. Vital Signs: 04:15 BP 165 / 92; Pulse 68; Resp 19; Temp 98.5(O); Pulse Ox 99% on R/A; Weight 77.11 kg; kd3 Height 5 ft. 6 in. ; 04:15 Body Mass Index 27.44 (77.11 kg, 167.64 cm) kd3 MDM: 04:12 Patient medically screened. bs3 05:08 Data reviewed: vital signs, nurses notes. ED course: Patient with left-sided neck pain bs3 and high blood pressure his symptoms are not consistent with a carotid dissection he has no neurologic symptoms his blood pressure is likely elevated in the setting of his pain his pain is musculoskeletal in description it is worse with movement better with rest worse with palpation of the left SCM we will trial NSAID and muscle relaxant advised blood pressure monitoring and strict return precautions. Administered Medications: 05:10 Drug: Ketorolac IM 30 mg Route: IM; Site: left gluteus; jb4 05:25 Follow up: Response: No adverse reaction; Marked relief of symptoms jb4 Disposition Summary: 07/29/22 05:13 Discharge Ordered Location: Home bs3 Problem: new bs3 Symptoms: have improved bs3 Condition: Stable bs3 Diagnosis - Strain of muscle and tendon of head, initial encounter bs3 Followup: bs3 - With: Private Physician - When: 5 - 6 days - Reason: Re-evaluation by your physician Discharge Instructions: - Discharge Summary Sheet bs3 - Muscle Strain, [id number] bs3 Forms: - Medication Reconciliation Form bs3 - Thank You Letter bs3 - Antibiotic Education bs3 - Prescription Opioid Use bs3 Prescriptions: - Naprosyn 500 mg Oral Tablet - take 1 tablet by ORAL route 2 times per day take with food; 30 tablet; Refills: bs3 0, Product Selection Permitted - Cyclobenzaprine 10 mg Oral Tablet - take 1 tablet by ORAL route every 8 hours As needed; 15 tablet; Refills: 0, bs3 Product Selection Permitted - Pepcid 20 mg Oral Tablet - take 1 tablet by ORAL route once daily for 10 days; 10 tablet; Refills: 0, bs3 Product Selection Permitted Signatures: Ephraim Mccullough RN RN jb4 Alicia Marcum RN RN kd3 George Hightower MD MD bs3
[2022-07-29 05:41] VITALS: BP 165/92; TEMP 98.5; O2SAT 99
== END 2022-07-29 05:26 | disposition home or self-care (01) ==
LOC: ER 03:52
DX: S09.11XA Strain of muscle and tendon of head, initial encounter (principal); I10 Essential (primary) hypertension

== ENCOUNTER 2024-01-23 23:10 | Emergency (ER) | payer OTHER ==
[2024-01-24 00:57] LABS: Absolute Eosinophils 0.1 K/uL (0-0.5); Absolute Lymphocytes (CBC) 0.5 K/uL (0.7-4.9); Absolute Monocytes 0.4 K/uL (0.1-1.3); Basophils % 0.2 % (0-1.3); Eosinophils % 0.9 % (0-4.4); Hematocrit 44.5 % (39.6-49.0); Hemoglobin 15.2 g/dL (13.6-17.9); Lymphocytes % 6.6 % (15.3-44.8); MCH 31.3 pg (27.0-35.0); MCHC 34.1 g/dL (32.0-36.0); MCV 91.8 fL (80-100); MPV 8.7 fL (7.6-11.3); Monocytes % 4.6 % (3.3-12.3); Neutrophils % 87.7 % (41.7-73.7); Nucleated Red Blood Cells % 0.1 % (0-0); Platelets 279 thou/uL (152-406); RBC Red Blood Cell Count 4.85 M/uL (4.33-5.43); Red Cell Distribution Width 13.1 % (12.1-15.2)
[2024-01-24 01:02] LABS: ALT/SGPT 72 U/L (16-61); AST/SGOT 72 U/L (15-37); Albumin 3.6 g/dL (3.4-5.0); Albumin/Globulin Ratio 0.8 (1.1-1.8); Alkaline Phosphatase 98 U/L (45-117); Anion Gap 7.8 mEq/L (5.0-15.0); BUN Blood Urea Nitrogen 15 mg/dL (7-18); Bicarbonate 29 mEq/L (21-32); Bilirubin Total 0.5 mg/dL (0.2-1.0); Globulin 4.4 g/dL (2.3-3.5); Glomerular Filtration Rate 75 ml/min (=/>90); Glucose Level 106 mg/dL (74-106); Potassium 3.8 mEq/L (3.5-5.1); Sodium Level 137 mEq/L (136-145)
[2024-01-24 01:11] LABS: SARS-CoV-2 Antigen CONTROL BLUE LINE VIS/BG OK; SARS-CoV-2 Antigen Rapid Res Negative (Negative)
[2024-01-24 01:12] LABS: Bilirubin Direct < 0.2 mg/dL (0-0.2); Bilirubin Indirect, Calculated 0.3 mg/dL (0.2-0.8)
[2024-01-24] MEDS ORDERED: KETOROLAC 30 MG/ML INJ ONE (02:14)
[2024-01-24] MEDS ORDERED: METOCLOPRAMIDE 10 MG/2mL INJ ONE (02:14)
[2024-01-24] MEDS ORDERED: NA CHLORIDE 0.9% 1,000 ML ONE (02:15)
[2024-01-24] MEDS ORDERED: DIPHENOX/ATROP SULF 1 TAB PO ONE (02:15)
[2024-01-24 02:26] LABS: Band Neutrophils 9 % (0-1); Differential Total Cells Count 100; Eosinophils 2 % (0-3); Lymphocytes 10 % (15-42); Monocytes 4 % (0-10); Segmented Neutrophils 75 % (40-80)
[2024-01-24 02:27] LABS: Blood Morphology Comment NOT SEEN (NOT SEEN); Platelet Estimate ADEQ
--- NOTE | 2024-01-24 04:05 | RAD REPORT ---
EXAM: CT Abdomen and Pelvis With Intravenous Contrast CLINICAL HISTORY: Abd pain. TECHNIQUE: Axial computed tomography images of the abdomen and pelvis with intravenous contrast. Sagittal and coronal reformatted images were created and reviewed. This CT exam was performed using one or more of the following dose reduction techniques: automated exposure control, adjustment of the mA a nd/or kV according to patient size, and/or use of iterative reconstruction technique. COMPARISON: Correlation is made with report only from study dated 02/16/2021 FINDINGS: Lung bases: Unremarkable. No mass. No consolidation. ABDOMEN: Liver: The liver is enlarged and mildly diffusely low in density compatible with steatosis. Gallbladder and bile ducts: Unremarkable. No calcified stones. No ductal dilation. Pancreas: Unremarkable. No mass. No ductal dilation. Spleen: Unremarkable. No splenomegaly. Adrenals: Unremarkable. No mass. Kidneys and ureters: Mild bilateral perinephric stranding. Lobulated renal contour bilaterally. Nor mal renal cortical enhancement. No calculi. No hydronephrosis. Subcentimeter renal cortical hypodensities bilaterally which are too small to characterize. Stomach and bowel: Unremarkable. No obstruction. No mucosal thickening. PELVIS: Appendix: Normal caliber appendix. No findings to suggest acute appendicitis. Bladder: The urinary bladder is distended. Reproductive: The prostate is mildly enlarged. ABDOMEN and PELVIS: Intraperitoneal space: Unremarkable. No free air. No significant fluid collection. Bones/joints: Multilevel spondylosis. No acute fracture. No dislocation. Soft tissues: Unremarkable. Vasculature: Mild to moderate atherosclerotic disease. No abdominal aortic aneurysm. Lymph nodes: Haziness within the central mesenteric fat with multiple subcentimeter lymph nodes. IMPRESSION: 1. Mild bilateral perinephric stranding. This is nonspecific and may be chronic. Acute superimp osed inflammatory process not excluded. 2. Haziness within the central mesenteric fat with multiple subcentimeter lymph nodes which can be seen in the setting of mesenteric panniculitis. The previous report mentioned similar findings. 3. Other findings as above. Electronically signed by: Fiorella Huggins MD 01/24/2024 04:02 AM [facility] Due to temporary technical issues with the PACS/[employer] reporting system, reports are being ben d by the in-house radiologist without review as a courtesy to ensure prompt reporting the interpreting radiologist is fully responsible for the content of the report. Transcribed Date/Time: 01/24/2024 4:05 AM
--- NOTE | 2024-01-24 05:29 | ER ---
Nurse's Notes [facility] Name: Manoj Hutchins Age: 63 yrs Sex: Male : 1960 Arrival Date: 01/23/2024 Time: 23:10 Bed 5 Private MD: Diagnosis: Other specified viral diseases;Acute Viral illness, Acute viral gastroenteritis Presentation: 01/22 23:36 Chief complaint: Patient states: generalized body aches, fever and headache that me1 started this morning. Tylenol last taken about 21:30. Coronavirus screen: Vaccine status: Patient reports receiving the 2nd dose of the covid vaccine. Ebola Screen: No symptoms or risks identified at this time. Initial Sepsis Screen: Does the patient meet any 2 criteria? HR > 90 bpm. Does the patient have a suspected source of infection? No. Patient's initial sepsis screen is negative. Risk Assessment: Do you want to hurt yourself or someone else? Patient reports no desire to harm self or others. Onset of symptoms was January 23, 2024 at 09:00. 23:36 Method Of Arrival: Ambulatory ut1 23:36 Acuity: BRAYDON 3 me1 Historical: - Allergies: 23:38 No Known Allergies; me1 - PMHx: 23:38 Hypertensive disorder; Migraine; me1 - PSHx: 23:38 None; me1 - Immunization history:: Adult Immunizations up to date. - Infectious Disease History:: Denies. - Social history:: Smoking status: Patient denies any tobacco usage or history of. Screenin/14 02:29 [facility] ED Fall Risk Assessment (Adult) History of falling in the last 3 months, cp4 including since admission No falls in past 3 months (0 pts) Confusion or Disorientation No (0 pts) Intoxicated or Sedated No (0 pts) Impaired Gait No (0 pts) Mobility Assist Device Used No (0 pt) Altered Elimination No (0 pt) Score/Fall Risk Level 0 - 2 = Low Risk Oriented to surroundings, Maintained a safe environment, Assessed \T\ reinforced patient's understanding of fall precautions, Hourly rounding (assess needs \T\ fall precautionary measures) done. Abuse screen: Denies threats or abuse. Nutritional screening: No deficits noted. Tuberculosis screening: No symptoms or risk factors identified. Assessment: 02:29 General: Appears in no apparent distress. comfortable, Behavior is calm, cooperative, cp4 appropriate for age. Pain: Complains of pain in abdomen Pain currently is 7 out of 10 on a pain scale. Neuro: Level of Consciousness is awake, alert, obeys commands, Oriented to person, place, time, situation. Cardiovascular: Patient's skin is warm and dry. Respiratory: Airway is patent Respiratory effort is even, unlabored. GI: Bowel sounds present X 4 quads. Abd is soft and non tender X 4 quads. : No signs and/or symptoms were reported regarding the genitourinary system. EENT: No signs and/or symptoms were reported regarding the EENT system. Derm: No signs and/or symptoms reported regarding the dermatologic system. Musculoskeletal: No signs and/or symptoms reported regarding the musculoskeletal system. 03:09 Reassessment: Patient appears in no apparent distress at this time. Patient and/or cp4 family updated on plan of care and expected duration. Pain level reassessed. Patient is alert, oriented x 3, equal unlabored respirations, skin warm/dry/pink. 04:00 Reassessment: Patient appears in no apparent distress at this time. Patient and/or cp4 family updated on plan of care and expected duration. Pain level reassessed. Patient is alert, oriented x 3, equal unlabored respirations, skin warm/dry/pink. 05:00 Reassessment: Patient appears in no apparent distress at this time. Patient and/or cp4 family updated on plan of care and expected duration. Pain level reassessed. Patient is alert, oriented x 3, equal unlabored respirations, skin warm/dry/pink. Vital Signs: 01/22 23:36 BP 164 / 101; Pulse 100; Resp 18; Temp 98.3; Pulse Ox 96% ; Weight 79.38 kg; Height 5 me1 ft. 6 in. ; Pain 07/19; 01/23 02:29 BP 146 / 102; Pulse 84; Resp 18; Pulse Ox 98% ; cp4 03:09 BP 163 / 98; Pulse 76; Resp 18; Pulse Ox 99% ; cp4 04:31 BP 148 / 90; Pulse 71; Resp 18; Pulse Ox 97% ; cp4 06:14 BP 157 / 86; Pulse 63; Resp 18; Pulse Ox 98% ; cp4 01/22 23:36 Body Mass Index 28.25 (79.38 kg, 167.64 cm) ut1 01/22 23:36 Pain Scale: Adult ut1 ED Course: 01/22 23:12 Patient arrived in ED. mr 23:20 Artem Paul MD is Attending Physician. sp4 23:38 Triage completed. ut1 23:38 Arm band placed on Patient placed in waiting room. ut1 01/23 00:20 Basic Metabolic Panel Sent. vk 00:20 CBC with Diff Sent. vk 00:20 LFT's Sent. vk 00:20 Influenza Screen (a \T\ B) Sent. vk 00:22 Initial lab(s) drawn, by me, sent to lab. Inserted saline lock: 20 gauge in right vk antecubital area, using aseptic technique. Blood collected. Flushed with 10 mL NS. 02:01 Nevaeh Dyson is Primary Nurse. cp4 02:05 CT Abd/Pelvis - IV Contrast Only In Process Unspecified. EDMS 02:29 Bed in low position. Call light in reach. Side rails up X 1. cp4 02:29 No provider procedures requiring assistance completed. cp4 06:15 Provided Education on: viral gastroenteritis. cp4 06:15 intact, bleeding controlled, No redness/swelling at site. Pressure dressing applied. cp4 Administered Medications: 02:28 Drug: NS 0.9% IV 1000 ml IV at 1 bolus Per protocol; to be given as a bolus over 60 cp4 minutes Route: IV; Rate: 1 bolus; Site: right antecubital; 03:42 Follow up: Response: No adverse reaction; IV Status: Completed infusion cp4 02:28 Drug: Ketorolac IVP 30 mg IVP once Route: IVP; Site: right antecubital; cp4 06:02 Follow up: Response: No adverse reaction cp4 02:28 Drug: metoCLOPramide IVP 10 mg IVP once; over 1 to 2 minutes Route: IVP; Site: right cp4 antecubital; 06:02 Follow up: Response: No adverse reaction cp4 02:28 Not Given (Patient Refused): diphenoxylate-atropine2 tabs PO once cp4 06:14 Drug: Ibuprofen PO 800 mg PO once Route: PO; cp4 06:14 Follow up: Response: No adverse reaction cp4 06:14 Drug: Acetaminophen PO 1000 mg PO once Route: PO; cp4 06:14 Follow up: Response: No adverse reaction cp4 Medication: 02:29 VIS not applicable for this client. cp4 Outcome: 05:28 Discharge ordered by . sp4 06:15 Discharged to home ambulatory, cp4 06:15 Condition: stable 06:15 Discharge instructions given to patient, Instructed on discharge instructions, follow up and referral plans. medication usage, Demonstrated understanding of instructions, follow-up care, medications, Prescriptions given X 3, 06:16 Patient left the ED. cp4 Signatures: Dispatcher [employer] EDYue Zhao, Reg Reg Artem Ann MD MD sp4 Gabby Baez RN RN me1 Nevaeh Dyson cp4 Marie Dominguez
--- NOTE | 2024-01-24 05:29 | EDPHYS ---
Physician Documentation [facility] Name: Manoj Hutchins Age: 63 yrs Sex: Male : 1960 Arrival Date: 01/23/2024 Time: 23:10 Bed 5 Private MD: ED Physician Artem Paul HPI: 01/22 23:20 This 63 yrs old Male presents to ER via Unassigned with complaints of Flu sp4 Symptoms, High Blood Pressure. 23:20 . sp4 Historical: - Allergies: 23:38 No Known Allergies; me1 - PMHx: 23:38 Hypertensive disorder; Migraine; me1 - PSHx: 23:38 None; me1 - Immunization history:: Adult Immunizations up to date. - Infectious Disease History:: Denies. - Social history:: Smoking status: Patient denies any tobacco usage or history of. Vital Signs: 23:36 BP 164 / 101; Pulse 100; Resp 18; Temp 98.3; Pulse Ox 96% ; Weight 79.38 kg; Height 5 me1 ft. 6 in. ; Pain 07/19; 01/23 02:29 BP 146 / 102; Pulse 84; Resp 18; Pulse Ox 98% ; cp4 03:09 BP 163 / 98; Pulse 76; Resp 18; Pulse Ox 99% ; cp4 04:31 BP 148 / 90; Pulse 71; Resp 18; Pulse Ox 97% ; cp4 06:14 BP 157 / 86; Pulse 63; Resp 18; Pulse Ox 98% ; cp4 01/22 23:36 Body Mass Index 28.25 (79.38 kg, 167.64 cm) wi1 01/22 23:36 Pain Scale: Adult me1 MDM: 01/22 23:21 Medical Screening Exam initiated sp4 01/23 05:27 ED course: EXAM: CTAbdomen and Pelvis With Intravenous Contrast CLINICAL HISTORY: Abd sp4 pain. TECHNIQUE: Axial computed tomography images of the abdomen and pelvis with intravenous contrast. Sagittal and coronal reformatted images were created and reviewed. This CT exam was performed using one or more of the following dose reduction techniques: automated exposure control, adjustment of the mA and/or kV according to patient size, and/or use of iterative reconstruction technique. COMPARISON: Correlation is made with report only from study dated 02/16/2021 FINDINGS: Lung bases: Unremarkable. No mass. No consolidation. ABDOMEN: Liver: The liver is enlarged and mildly diffusely low in density compatible with steatosis. Gallbladder and bile ducts: Unremarkable. No calcified stones. No ductal dilation. Pancreas: Unremarkable. No mass. No ductal dilation. Spleen: Unremarkable. No splenomegaly. Adrenals: Unremarkable. No mass. Kidneys and ureters: Mild bilateral perinephric stranding. Lobulated renal contour bilaterally. Normal renal cortical enhancement. No calculi. No hydronephrosis. Subcentimeter renal cortical hypodensities bilaterally which are too small to characterize. Stomach and bowel: Unremarkable. No obstruction. No mucosal thickening. PELVIS: Appendix: Normal caliber appendix. No findings to suggest acute appendicitis. Bladder: The urinary bladder is distended. Reproductive: The prostate is mildly enlarged. ABDOMEN and PELVIS: Intraperitoneal space: Unremarkable. No free air. No significant fluid collection. Bones/joints: Multilevel spondylosis. No acute fracture. No dislocation. Soft tissues: Unremarkable. Vasculature: Mild to moderate atherosclerotic disease. No abdominal aortic aneurysm. Lymph nodes: Haziness within the central mesenteric fat with multiple subcentimeter lymph nodes. IMPRESSION: 1. Mild bilateral perinephric stranding. This is nonspecific and may be chronic. Acute superimposed inflammatory process not excluded. 2. Haziness within the central mesenteric fat with multiple subcentimeter lymph nodes which can be seen in the setting of mesenteric panniculitis. The previous report mentioned similar findings. 3. Other findings as above. Electronically signed by: Fiorella Huggins MD 01/24/2024 04:02 AM ACTIVITIES THERAPIST RP. 01/22 23:21 Order name: SARS RAPID; Complete Time: 4 01/22 23:21 Order name: Influenza Screen (a \T\ B); Complete Time: 4 01/22 23:21 Order name: Basic Metabolic Panel; Complete Time: 4 01/22 23:21 Order name: CBC with Diff; Complete Time: 03: sp4 01/22 23:21 Order name: LFT's; Complete Time: 4 01/23 01:13 Order name: Manual Differential; Complete Time: 03:21 EDMS 01/23 01:35 Order name: CT Abd/Pelvis - IV Contrast Only; Complete Time: 05:4 01/22 23:21 Order name: IV Saline Lock; Complete Time: 00:20 sp4 01/22 23:21 Order name: Labs collected and sent; Complete Time: 00:20 sp4 Administered Medications: 02:28 Drug: NS 0.9% IV 1000 ml IV at 1 bolus Per protocol; to be given as a bolus over 60 cp4 minutes Route: IV; Rate: 1 bolus; Site: right antecubital; 03:42 Follow up: Response: No adverse reaction; IV Status: Completed infusion cp4 02:28 Drug: Ketorolac IVP 30 mg IVP once Route: IVP; Site: right antecubital; cp4 06:02 Follow up: Response: No adverse reaction cp4 02:28 Drug: metoCLOPramide IVP 10 mg IVP once; over 1 to 2 minutes Route: IVP; Site: right cp4 antecubital; 06:02 Follow up: Response: No adverse reaction cp4 02:28 Not Given (Patient Refused): diphenoxylate-atropine2 tabs PO once cp4 06:14 Drug: Ibuprofen PO 800 mg PO once Route: PO; cp4 06:14 Follow up: Response: No adverse reaction cp4 06:14 Drug: Acetaminophen PO 1000 mg PO once Route: PO; cp4 06:14 Follow up: Response: No adverse reaction cp4 Disposition Summary: 01/24/24 05:28 Discharge Ordered Notes: Location: Home sp4 Problem: new sp4 Symptoms: have improved sp4 Condition: Stable sp4 Diagnosis - Other specified viral diseases sp4 - Acute Viral illness, Acute viral gastroenteritis sp4 Followup: sp4 - With: Private Physician - When: 7 - 10 days - Reason: Recheck today's complaints Discharge Instructions: - Discharge Summary Sheet sp4 - Viral Gastroenteritis, Adult, [id number] sp4 Forms: - Patient Portal Instructions sp4 Prescriptions: - ondansetron 8 mg Oral Tablet,disintegrating - take 1 tablet ORAL route every 8 hours PRN nausea; 30 tablet; Refills: 0, sp4 Product Selection Permitted - Ibuprofen 800 mg Oral Tablet - take 1 tablet ORAL route every 8 hours As needed take with food; 30 tablet; sp4 Refills: 0, Product Selection Permitted - Lomotil 2.5-0.025 mg Oral tablet - take 1 tablet ORAL route every 6 hours As needed PRN diarrhea; 30 tablet; sp4 Refills: 0, Product Selection Permitted Signatures: Dispatcher [employer] EDMS Artem Paul MD MD sp4 Gabby Baez RN RN me1 Nevaeh Dyson cp4 Corrections: (The following items were deleted from the chart) 01/22 23:22 23:22 SARS-COV-2 Antigen Rapid+I.LAB.BRZ ordered. EDMS EDMS 23:22 23:22 Influenza Screen (A \T\ B)+BA.LAB.BRZ ordered. EDMS EDMS 23:22 23:22 BASIC METABOLIC PANEL+C.LAB.BRZ ordered. EDMS EDMS 23: 23:22 CBC+H.LAB.BRZ ordered. EDMS EDMS 23:22 23:22 HEPATIC FUNCTION+C.LAB.BRZ ordered. EDMS EDMS 01/23 01:35 01:35 Abdomen Pelvis W Con+CT.RAD.BRZ ordered. EDMS EDMS
[2024-01-24] MEDS ORDERED: IBUPROFEN 400 MG TAB ONE (06:09)
[2024-01-24] MEDS ORDERED: ACETAMINOPHEN 500 MG TAB ONE (06:09)
[2024-01-24 06:34] VITALS: TEMP 98.3
[2024-01-24 06:43] VITALS: BP 157/86; O2SAT 98
== END 2024-01-24 06:16 | disposition home or self-care (01) ==
LOC: ER 23:10
DX: B33.8 Other specified viral diseases (principal); A08.39 Other viral enteritis; B34.9 Viral infection, unspecified; I10 Essential (primary) hypertension; Z11.52 Encounter for screening for COVID-19
CPT/HCPCS: 36415; 74177; 80048; 80076; 85025; 87804; 87811; J2765; J7030; Q9967